=== PATIENT | female | born 1970 | race Caucasian/White ===

== ENCOUNTER 2018-02-13 18:24 | Emergency (ER) | payer BC ==
[2018-02-13 18:42] VITALS: BP 121/66
[2018-02-13] MEDS ORDERED: Cyclobenzaprine TAB* 10 MG PO ONE (19:18)
[2018-02-13] MEDS ORDERED: HYDROcodone/ACETAMIN 5-325 MG* 1 TAB PO ONE (19:18)
--- NOTE | 2018-02-13 19:18 | UC ---
Back Pain HPI - HPI Summary HPI Summary: 47 year old female with onset of low back pain 4 days ago. Describes as sharp and spasmotic primarily to the left lower back. Non-radiating. Worsens with movement. She saw chiropractor today without improvement. She has also tried naproxen and cyclobenzaprine that was previously prescribed to her for a previous episode of low back pain without relief however both of these prescriptions were . Denies fever, chills, abdominal pain, flank pain, nausea, vomiting, dysuria, frequency, urgency, hematuria, numbness, tingling, weakness of extremities, or loss of bowel or bladder control. - History of Current Complaint Chief Complaint: UCBackPain Stated Complaint: BACK PAIN Time Seen by Provider: 02/13/18 19:02 Hx Obtained From: Patient Hx Last Menstrual Period: last week ?: No Onset/Duration: Sudden Onset, Lasting Days - 4 Timing: Constant Severity Currently: Moderate Pain Intensity: 7 Character: Sharp, Spasmodic Aggravating Factor(s): Movement, Bending Alleviating Factor(s): Nothing Associated Signs And Symptoms: Negative: Fever, Weakness, Numbness, Tingling, Abdominal Pain, Flank Pain, Bladder Incontinence, Bowel Incontinence - Allergies/Home Medications Allergies/Adverse Reactions: Allergies Allergy/AdvReac Type Severity Reaction Status Date / Time No Known Allergies Allergy Verified 07/30/17 09:45 Home Medications: Home Medications Atovaquone/Proguanil HCl [Malarone] 1 tab PO BID 02/13/18 [History Confirmed 05/02] Ibuprofen [Advil] 400 mg PO Q8HR 02/13/18 [History Confirmed 02/13/18] L.acidoph,Paracasei, B.lactis [Probiotic] 1 each PO DAILY 02/13/18 [History Confirmed 02/13/18] Thyroid,Pork [[place] Thyroid] 15 mg PO DAILY 02/13/18 [History Confirmed ] ceFUROXime TAB(*) [Ceftin TAB 250 MG(*)] 500 mg PO BID 02/13/18 [History Confirmed 02/13/18] PMH/Surg Hx/FS Hx/Imm Hx Previously Healthy: Yes Endocrine History: Hypothyroidism - Surgical History Surgical History: Yes Surgery Procedure, Year, and Place: VEIN STRIPPING 2008, 2009 - Family History Family History: Noncontributory - Social History Occupation: Employed Full-time Lives: With Family Alcohol Use: None Substance Use Type: None Smoking Status (MU): Never Smoked Tobacco Review of Systems Constitutional: Negative Skin: Negative Respiratory: Negative Cardiovascular: Negative Gastrointestinal: Negative Genitourinary: Negative Motor: Negative Neurovascular: Negative Musculoskeletal: Other: - See HPI Is Patient Immunocompromised?: No All Other Systems Reviewed And Are Negative: Yes Physical Exam Triage Information Reviewed: Yes Appearance: Well-Appearing, Well-Nourished, Pain Distress - Mild discomfort Vital Signs: Initial Vital Signs Temp 97.7 F 02/13/18 18:36 Pulse 73 02/13/18 18:36 Resp 18 02/13/18 18:36 BP 121/66 02/13/18 18:36 Pulse Ox 100 02/13/18 18:36 Neck: Positive: Supple, Nontender Respiratory: Positive: Lungs clear, Normal breath sounds, No respiratory distress Cardiovascular: Positive: RRR, No Murmur Abdomen Description: Positive: Nontender, No Organomegaly, Soft. Negative: CVA Tenderness (R), CVA Tenderness (L), Distended, Guarding Bowel Sounds: Positive: Present Musculoskeletal: Positive: Strength Intact, Other: - Soft tissue tenderness left lower lumbar back with spasm. No tenderness over the spinous process. Neurological: Positive: Alert, Muscle Tone Normal, Other: - Sensation intact distally Skin Exam: Normal Back Pain Course/Dx - Course Course Of Treatment: 47 year old female with left lower back pain x 4 days. Afebrile. VSS. Exam unremarkable except for some soft tissue tenderness left lumbar back with spasm. Patient was given dose of hydrocodone-acetaminophen 5 mg -325 mg 1 tab and cyclobenzaprine 10 mg 1 tab for pain relief here in the clinic. She was given prescription for naproxen and cyclobenzaprine for home use. Recommend conservative treatment with above medications and heat. She is to follow up with PCP in 7 days if no improvement. Warning symptoms were reviewed. Verbalizes understanding and agrees with POC. - Differential Dx/Diagnosis Differential Diagnosis/HQI/PQRI: Arthritis, Herniated Disc, Strain Provider Diagnoses: Acute lower back pain Discharge - Sign-Out/Discharge Documenting (check all that apply): Patient Departure All imaging exams completed and their final reports reviewed: No Studies - Discharge Plan Condition: Stable Disposition: HOME Prescriptions: Cyclobenzaprine (NF) [Cyclobenzaprine 5 MG (NF)] 5 mg PO TID PRN #30 tab PRN Reason: Spasms - Back Naproxen [Naproxen 500 mg tab] 500 mg PO Q12HR #30 tablet Patient Education Materials: Low Back Strain (ED) Referrals: Layla Regalado NP [Primary Care Provider] - 7 Days (If no improvement in symptoms) Additional Instructions: Take naproxen 1 tab every 12 hours with food for next 5 days. After 5 days may take 1 tab every 12 hours as needed for pain. Use cyclobenzaprine 1 tab every 8 hours as needed for severe pain and spasm. This will cause drowsiness so do not take and drive or operate machinery. Apply warm moist heat to affected area for 15-20 minutes 4 times a day. Follow up with your chiropractor as needed. Follow up with your primary care provider in 7 days if symptoms persist. Seek immediate medical attention in the emergency room if you have fever greater than 100.5 F, develop severe abdominal pain, persistent vomiting, numbness, tingling, weakness in your lower extremities, lose control of your bowel or bladder, or have any worsening of symptoms. - Billing Disposition and Condition Condition: STABLE Disposition: Home - Attestation Statements Provider Attestation: Per institutional requirements, I have reviewed the chart, however, I was not consulted specifically or made aware of this patient by the midlevel provider. I did not personally evaluate, interact with , or disposition this patient.
== END 2018-02-13 19:34 | disposition home or self-care (01) ==
LOC: UCEAST 18:24
DX: M54.5 Low back pain (principal); E03.9 Hypothyroidism, unspecified
CPT/HCPCS: 99202; A9270-GY; G0463